=== PATIENT | female | born 1970 | race Caucasian/White ===

== ENCOUNTER 2018-08-25 09:05 | Day surgery (SDC) | payer MEDICAID ==
[2018-08-24 13:12] LABS: HEMATOCRIT 35.9 % (36.0-48.0); MCHC 33.4 g/dL (31.0-37.0); MCV 83.9 fL (80.0-100.0); MEAN PLATELET VOLUME 8.8 fL (7.4-10.4); RBC 4.28 10x6/uL (4.00-5.40); WBC 7.3 10x3/uL (4.8-10.8)
[~2018-08-25] VITALS: Ht 157.5 cm; Wt 67.3 kg
[~2018-08-25 09:05] MED LIST: ASPIRIN325 MG PO; EFFEXOR75 MG PO; KLONOPIN0.5 MG PO; LIPITOR40 MG PO; LISINOPRIL10 MG PO; NIASPAN500 MG PO; OMEPRAZOLE40 MG PO
[2018-08-25 10:23] VITALS: BP 124/87; BMI 26.2
[2018-08-25 16:28] VITALS: BP 144/80
--- NOTE | 2018-08-25 19:19 | NUR ---
PT RESTING IN BED, EYES OPEN. NO C/O PAIN. NO S/S OF DISTRESS NOTED. PT DENIES ANYTHING FURTHER AT THIS TIME. CALL LIGHT IN REACH. WILL CONTINUE TO MONITOR.
[2018-08-25 19:33] VITALS: BP 142/86
[2018-08-25 19:39] VITALS: BP 144/80; Ht 157.5 cm; Wt 67.3 kg
--- NOTE | 2018-08-26 02:00 | NUR ---
A/OX4. BREATHING EVEN AND UNLABORED. DENIES NEEDS AT THIS TIME. WILL CONTINUE POC.
[2018-08-26 09:00] VITALS: BP 126/57
--- NOTE | 2018-08-26 10:50 | NUR ---
PT SITTING UP IN BED, NO ACUTE DISTRESS NOTED. DENIES INCREASING PAIN OR DIFFICULTY BREATHING AT THIS TIME. CONTINUE TO MONITOR.
[2018-08-26 12:00] VITALS: BP 106/55
[2018-08-26] MEDS ORDERED: ULTRAM50 MG PO (13:51)
[2018-08-26] MEDS ORDERED: SYNTHROID100 MCG PO (13:53)
--- NOTE | 2018-08-26 14:33 | NUR ---
PT GIVEN DISCHARGE INSTRUCTIONS WITH PRESCRIPTIONS TO BE FILLED. EDUCATED ON NEED TO CONTACT MD OFFICE ON TUESDAY FOR FOLLOW UP APPOINTMENT. DENIES QUESTIONS AT THIS TIME. TAKEN OUT VIA W/C TO PRIVATE VEHICLE. PT BRITTANY WELL
--- NOTE | 2018-08-28 13:56 | OP ---
PATIENT NAME: HAMIDA ROACH MEDICAL RECORD: [id number] :72 LOC[facility] ADMISSION DATE: SURGEON: ENRICO DILLARD MD DATE OF OPERATION: 08/25/2018 PREOPERATIVE DIAGNOSES: Left thyroid nodule and history of right thyroid lobectomy. POSTOPERATIVE DIAGNOSES: Left thyroid nodule and history of right thyroid lobectomy. PROCEDURE: Left thyroid lobectomy (completion thyroidectomy). SURGEON: Enrico Dillard MD [employer] OP: None. BLOOD LOSS: 50 cc. ANESTHESIA: General. COMPLICATIONS: None. The risks, possible complications and alternatives to the procedure were explained to the patient. She elects to proceed. The discussion specifically included, but was not limited to, bleeding requiring emergency reoperation, infection, hypoparathyroidism, the possible need for additional neck exploration, the possible need for radioactive iodine and the fact that she would be on thyroid supplementation from now on. OPERATIVE COURSE: The patient was conveyed to the operating room electively on 08/25/2018. General anesthesia was induced by the anesthesia staff. The neck was sterilely prepped and draped. A transverse incision was accomplished through the patient's previous scar. Sharp dissection was carried down through skin and subcutaneous tissue. Subplatysmal flaps were created in a cephalad and caudad direction. Strap muscles were divided in the midline. The left thyroid lobe was rolled medially. The superior pole vessels were taken down with the Harmonic scalpel. I dissected behind the thyroid lobe and I identified 2 parathyroid glands, which were retracted and protected during the operation. I also identified a nerve which was the recurrent laryngeal nerve and it was protected during the operation as well. The thyroid gland was then excised from the underlying trachea with the Harmonic scalpel. It was sent to pathology as a single specimen. Meticulous hemostasis was achieved with the electrocautery. A topical powder hemostatic agent was added to the thyroid fossa. The strap muscles were approximated in the midline with multiple interrupted horizontal mattress 3-0 Vicryls. The platysma was approximated with interrupted 3-0 Vicryls. The skin was approximated with a running intracuticular 4-0 Vicryl. Steri-Strips were applied and then a larger towel dressing. I will see the patient in my office in 3 weeks. The patient is to be observed overnight for bleeding. TRANSINT:[id number] Voice Confirmation ID: [id number] DOCUMENT ID: [id number] OPERATIVE REPORT [id number] HAMIDA ROACH ROBERT MD at 1356 CC: [id number] DICTATION DATE: 08/25/18 1545 BUSINESS CONTINUITY PLANNING DIRECTOR: 08/25/18 [id number] [facility] 08/26/18 [place] [id number] [place] [id number]
== END 2018-08-26 14:41 | disposition home or self-care (01) ==
LOC: D.OPS 09:05 → D.MS 09:05 → D.SDCHOLD 11:30 → D.OPS 11:30 → EDSTATUS 11:30 → D.SDCHOLD 11:40 → D.MS 15:47 → D.OPS 08-26 14:41
PROVIDERS: Anesthesiology
DX: D34 Benign neoplasm of thyroid gland (principal); Z01.812 Encounter for preprocedural laboratory examination